=== PATIENT | male | born 1945 ===

== ENCOUNTER 2025-06-23 08:48 | Outpatient (CLI) | payer OTHER | END 2025-06-23 08:49 | disposition home or self-care (01) | LOC: CSHSLEEP 08:48 | PROVIDERS: ATTEND Internal Medicine Critical Care Medicine | DX: G47.33 Obstructive sleep apnea (adult) (pediatric) (principal); E11.9 Type 2 diabetes mellitus without complications | CPT/HCPCS: 95800 ==